=== PATIENT | male | born 1965 | race Caucasian/White ===

== ENCOUNTER → 2023-05-24 06:40 | Day surgery (SDC) | payer OTHER, SELFPAY ==
[2023-05-24 10:21] LABS: Glucose - Point of Care 116 mg/dl (70-99)
== END ==
LOC: GI 06:40
PROVIDERS: ATTENDING PHYSICIAN Internal Medicine Gastroenterology
DX: Z12.11 Encounter for screening for malignant neoplasm of colon (principal); D17.5 Benign lipomatous neoplasm of intra-abdominal organs; K57.30 Diverticulosis of large intestine without perforation or abscess without bleeding; K64.8 Other hemorrhoids
CPT/HCPCS: G0105; 82962